=== PATIENT | female | born 1965 | race Caucasian/White ===

== ENCOUNTER 2018-09-05 07:51 | Day surgery (SDC) | payer MEDICARE ==
[~2018-09-05 07:51] MED LIST: PREMYELOGRAM MEDICATION REVIEW 1 EACH MISC PO PRN
[2018-09-05 08:37] VITALS: RESP 18; TEMP 98.1
[2018-09-05] MEDS ORDERED: DIAZEPAM 5 MG TAB PO STA (09:18)
[2018-09-05 10:06] VITALS: BP 142/91
[2018-09-05 10:10] VITALS: PULSE 77
--- NOTE | 2018-09-06 04:15 | FL ---
PROCEDURE: Attempted Lumbar puncture for myelogram. DATE: 09/05/2018 CLINICAL HISTORY: 53-year-old female M96.1 COMPLICATIONS: None The patient and the patient's vital signs were monitored by qualified independent radiology personnel . Extensive spinal fusion hardware [id number]. TECHNIQUE: The procedure and potential risks were explained to patient and an informed consent was obtained with teach back. Site and side was verified. A time out was performed. The patient was placed prone on the fluoroscopy table and the L2-L4 level was localized and the skin was marked and was prepped and draped in the usual sterile fashion. Lidocaine was used for local anesthesia. Utilizing fluoroscopic guidance a 22-gauge spinal needle was placed through the skin and multiple attempts were made to access the subarachnoid space. Midline an d paraspinal approaches were attempted as well as attempts to additional lower levels. A second radio logist also attempted access unsuccessfully. The patient tolerated the attempted procedure well and was sent back to the recovery area in satisfac tory condition. The estimated blood loss was minimal. The patient's condition was unchanged following the procedure. Fluoroscopy time: 6.09 minutes Total images: 1 IMPRESSION: Unsuccessful access to the subarachnoid space at L3-L4 and 2 additional lower levels. Multiple attemp ts were made by 2 radiologists.
== END 2018-09-05 11:00 | disposition home or self-care (01) ==
LOC: RADPROMAIN 07:51
PROVIDERS: ATTEND Anesthesiology Pain Medicine
DX: M54.5 Low back pain (principal); Z98.1 Arthrodesis status; Z53.8 Procedure and treatment not carried out for other reasons
CPT/HCPCS: 62305; J2001

== ENCOUNTER → 2019-04-14 | Outpatient (CLI) | payer MEDICARE ==
[2019-04-14 14:21] LABS: Platelet Count 167 k/uL (150-450)
[2019-04-14 14:24] LABS: INR 0.9 (<1.2); Partial Thromboplastin Time 24.6 sec (22.0-30.0); Prothrombin Time 10.1 sec (9.0-12.0)
== END | disposition home or self-care (01) ==
LOC: LABWHC1 13:38
PROVIDERS: ATTEND Radiology Diagnostic Radiology
DX: Z01.812 Encounter for preprocedural laboratory examination (principal)
CPT/HCPCS: 36415; 85049; 85610; 85730

== ENCOUNTER → 2024-03-28 | Outpatient (CLI) | payer MEDICARE ==
--- NOTE | 2024-03-31 08:30 | MM ---
Reason for Exam: Screening (asymptomatic). Patient History: Menarche at age 17. First Full-Term at age 18. Postmenopausal. 07/02/2007, Bilateral Implants. Risk Values: Mami 5 year model risk: 0.8%. NCI Lifetime model risk: 5.3%. Tissue Density: The breasts are extremely dense, which lowers the sensitivity of mammography. Findings: Analyzed By CAD. There is no suspicious group of microcalcifications or new suspicious mass in either breast. Bilateral implants are intact. Overall Assessment: Benign, BI-RAD 2 Management: Screening Mammogram of both breasts in 1 year. . Patient should continue monthly self-breast exams. A clinical breast exam by your physician is recommended on an annual basis. This exam should not preclude additional follow-up of suspicious palpable abnormalities. Note on Mami scores and lifetime risk: 1. A Mami score greater than 3% is considered moderate risk. If this is the case, consider specialist referral to assess eligibility for a risk reducing agent. 2. If overall lifetime risk for the development of breast cancer is 20% or higher, the patient may qualify for future screening with alternating mammogram and breast MRI. [facility], , 03/31/2024 8:28 AM. Electronically signed and approved by: Chriss Isabel M.D. Radiologis
== END | disposition home or self-care (01) ==
LOC: RADMAMWWP 13:03
PROVIDERS: ATTEND Family Medicine
DX: Z12.31 Encounter for screening mammogram for malignant neoplasm of breast
CPT/HCPCS: 77063; 77067